=== PATIENT | male | born 1960 | race African-American/Black ===

== ENCOUNTER 2020-11-11 16:21 | Emergency (ER) | payer OTHER ==
[~2020-11-11] VITALS: Ht 190.5 cm; Wt 116.0 kg
[2020-11-11 16:26] VITALS: BP 143/106
== END 2020-11-11 17:03 | disposition home or self-care (01) ==
LOC: ER 16:21
DX: B34.9 Viral infection, unspecified (principal); R43.8 Other disturbances of smell and taste; Z20.822 Contact with and (suspected) exposure to COVID-19; J02.9 Acute pharyngitis, unspecified; R09.81 Nasal congestion
CPT/HCPCS: 99283; C9803; U0003; U0005

== ENCOUNTER 2021-02-10 13:03 | Emergency (ER) | payer MEDICAID, OTHER ==
[~2021-02-10] VITALS: Ht 190.5 cm; Wt 83.0 kg
[2021-02-10 13:29] VITALS: BP 159/106
[2021-02-10] MEDS ORDERED: AMOXICILLIN/POTASSIUM CLAVULANATE 875/125MG TAB PO ONE (13:45)
[2021-02-10] MEDS ORDERED: AMOX-424 MT (15:39)
== END 2021-02-10 15:58 | disposition home or self-care (01) ==
LOC: ER 13:15
DX: J32.9 Chronic sinusitis, unspecified (principal); F12.10 Cannabis abuse, uncomplicated; Z20.822 Contact with and (suspected) exposure to COVID-19
CPT/HCPCS: 99283; C9803; U0003; U0005